=== PATIENT | female | born 1990 | race Two or more races ===

== ENCOUNTER → 2024-02-10 | Outpatient (CLI) | payer BC, SELFPAY | END | disposition home or self-care (01) | PROVIDERS: Referring Provider Physician Assistant Medical; Visit Provider Physician Assistant Medical | DX: Z34.82 Encounter for supervision of other normal pregnancy, second trimester (principal) | CPT/HCPCS: 87077; 87086; 87186 ==

== ENCOUNTER → 2024-03-07 | Outpatient (CLI) | payer BC, SELFPAY | END | disposition home or self-care (01) | LOC: SLDO 11:32 | PROVIDERS: Referring Provider Specialist; Visit Provider Specialist | DX: Z34.82 Encounter for supervision of other normal pregnancy, second trimester (principal) | CPT/HCPCS: 87086 ==

== ENCOUNTER → 2024-03-22 | Outpatient (CLI) | payer BC, SELFPAY ==
[2024-03-22 13:53] LABS: Basophils % (Auto) 1 % (0-2.5); Eosinophils # (Auto) 0.1 Thou/mm3 (0.0-0.5); Eosinophils % (Auto) 1 % (0-10); Hemoglobin 12.4 g/dL (12.0-16.0); Immature Granulocytes % (Auto) 2 % (0-0); Immature Granulocytes Auto 0.17 Thou/mm3 (0.00-0.00); Lymphocytes # (Auto) 1.1 Thou/mm3 (1.0-4.8); Lymphocytes % (Auto) 15 % (10-50); Mean Corpuscular HGB Conc 32.6 g/dl (31.0-37.0); Mean Corpuscular Hemoglobin 30.5 pg (25.0-35.0); Mean Corpuscular Volume 93 fL (80-100); Monocytes # (Auto) 0.7 Thou/mm3 (0.0-0.8); Monocytes % (Auto) 9 % (0-12); Neutrophils # (Auto) 5.7 Thou/mm3 (1.8-7.7); Neutrophils % (Auto) 73 % (37-80); Nucleated Red Blood Cell % 0 /100 WBC (0); Platelet Count 230 Thou/mm3 (140-440); RDW Standard Deviation 46.1 fL (36.4-46.3); Red Blood Count 4.07 Miln/mm3 (4.00-5.20); White Blood Count 7.8 Thou/mm3 (3.6-11.0)
[2024-03-22 14:35] LABS: Syphilis Nonreactive (Nonreactive)
== END | disposition home or self-care (01) ==
LOC: SLDO 12:32
PROVIDERS: Referring Provider Specialist; Visit Provider Specialist
DX: Z34.83 Encounter for supervision of other normal pregnancy, third trimester (principal); N39.0 Urinary tract infection, site not specified
CPT/HCPCS: 36415; 85025; 86780; 87086

== ENCOUNTER → 2024-04-27 | Outpatient (CLI) | payer OTHER, SELFPAY | END | disposition home or self-care (01) | PROVIDERS: Referring Provider Physician Assistant Medical; Visit Provider Physician Assistant Medical | DX: Z34.83 Encounter for supervision of other normal pregnancy, third trimester (principal) | CPT/HCPCS: 81514 ==

== ENCOUNTER 2024-05-12 14:27 | Observation (INO) | payer OTHER, SELFPAY ==
[2024-05-12] VITALS (21 sets, daily range): BP systolic 122–129; BP diastolic 75–77; PULSE 86–116; RESP 18–99; TEMP 37; O2SAT 97–99; BMI 26.1
[2024-05-12 15:29] LABS: ROM Kit Lot # 57809118; ROM Swab Mixed By: YOUNB; Rupture of Fetal Membranes Negative (Negative); Swb Mxed in Solvent 1 min? Yes
--- NOTE | 2024-05-12 16:24 | PC.NURSE ---
Patient discharged home with self at 1618. Vitals WNL. NST reactive. Patient cervix unchanged from initial exam. Amnisure negative and bacteria vaginal panel pending. Patient notified that someone will update her with results of vaginitis panel. Patient given discharge education and precautions including reasons to return. Patient instructed to follow up with on Wednesday at next scheduled appt. Patient verbalizes understanding, all questions answered and encouraged.
[2024-05-13 10:18] LABS: BVAG Candida Negative (Negative); Bacterial Vaginosis Markers Negative (Negative); Candida glabrata Negative (Negative); Candida krusei PCR Negative (Negative); Trichomonas Negative (Negative)
== END 2024-05-12 16:18 | disposition home or self-care (01) ==
PROVIDERS: Admitting Provider Specialist; Visit Provider Specialist
DX: O47.1 False labor at or after 37 completed weeks of gestation (principal); Z3A.38 38 weeks gestation of pregnancy
CPT/HCPCS: 59025; 59899; 81514; 84112

== ENCOUNTER 2024-05-20 23:17 | Observation (INO) | payer OTHER, SELFPAY ==
[2024-05-20 23:23] VITALS: BP 127/77; PULSE 73; RESP 16; RESP 98; TEMP 36.6
[2024-05-20 23:24] VITALS: BP 127/77; PULSE 73; TEMP 36.6
[2024-05-20 23:45] VITALS: BP 112/67; PULSE 73; TEMP 36.6; BMI 26.2
[2024-05-20 23:55] LABS: ROM Kit Lot # 57809118; ROM Swab Mixed By: ANGUM; Swb Mxed in Solvent 1 min? Yes
[2024-05-20 23:56] LABS: Rupture of Fetal Membranes Negative (Negative)
== END 2024-05-21 00:15 | disposition home or self-care (01) ==
PROVIDERS: Admitting Provider Specialist; Visit Provider Specialist
DX: Z34.83 Encounter for supervision of other normal pregnancy, third trimester (principal); Z3A.39 39 weeks gestation of pregnancy
CPT/HCPCS: 59025; 59899; 84112

== ENCOUNTER 2024-05-31 05:54 | Inpatient (IN) | payer OTHER, SELFPAY ==
--- NOTE | 2024-05-27 11:47 | ESHP_ITS ---
RE: MICHAEL BRAUN : 1990 DATE OF ADMISSION: 05/31/2024 HISTORY OF PRESENT ILLNESS: This is a 33-year-old G2, P1-0-0-1 with a due date of 05/25 with intrauterine at 40w6 days who presents complaining of contractions and is noted to be 4 cm.The patient denies any leaking or bleeding. She reports normal movement.contractions. Her care was complicated by urinary tract infection in the second trimester due to group B strep. ALLERGIES: NO KNOWN DRUG ALLERGIES. MEDICATIONS: multivitamin one p.o. daily. PAST MEDICAL HISTORY: Iron deficiency anemia, group B strep urinary tract infection, anxiety disorder. SOCIAL HISTORY: She denies any alcohol, drug use, or smoking. She is . FAMILY HISTORY: Denies. OBSTETRIC HISTORY: In 2020, 40-week normal vaginal delivery, 7 pounds 8-ounce female. No complications. PAST SURGICAL HISTORY: Denies. REVIEW OF SYSTEMS: She denies any chest pain, palpitations, cough, fever, shortness of breath, or lower extremity pain. She denies any headache, change in vision, or right upper quadrant pain. PHYSICAL EXAMINATION: VITAL SIGNS: Blood pressure 131/78, heart rate 88, respirations 18, temperature 98.2, weight 157 pounds. HEENT: Oropharynx and sclerae are clear. LUNGS: Clear to auscultation bilaterally. HEART: Regular rate and rhythm. ABDOMEN: Gravid term size, consistent with estimated weight 8 pounds. PELVIC: 4/80/-1/vtx/I per RN exam. EXTREMITIES: Nontender. SKIN: No gross rashes or lesions. NEUROLOGIC: No focal deficits. ASSESSMENT AND PLAN: Intrauterine at 40 weeks and 6 days, labor. + GBS UTI. Anticipate spontaneous vaginal delivery. Informed consent was obtained. The patient was made aware of the risks, complications, alternatives, and benefits of the proposed procedure and she agrees. She is aware of the risk of operative vaginal delivery and delivery and agrees with these modes of delivery if indicated. Ampicillin GBS prophylaxis. DT: 10:29:57 TT: 11:38:00 Ref: [id number] - TID: [id number] [facility]
[2024-05-31] VITALS (225 sets, daily range): BP systolic 106–156; BP diastolic 53–87; PULSE 61–104; RESP 16–99; TEMP 36.6–36.8; O2SAT 80–100; BMI 26.8
[2024-05-31] MEDS: Ampicillin Inj 2,000 MG in SODIUM CHLORIDE 0.9% (POP) 100 ML 200 MG IV (07:45)
[2024-05-31] MEDS: RINGERS LACTATED 1000 ML 1,000 ML 100 ML IV ×2 (07:47→11:34)
[2024-05-31 08:52] LABS: Basophils % (Auto) 0 % (0-2.5); Eosinophils # (Auto) 0.1 Thou/mm3 (0.0-0.5); Eosinophils % (Auto) 1 % (0-10); Hematocrit 37.2 % (36.0-46.0); Hemoglobin 12.6 g/dL (12.0-16.0); Immature Granulocytes % (Auto) 1 % (0-0); Immature Granulocytes Auto 0.08 Thou/mm3 (0.00-0.00); Lymphocytes # (Auto) 1.2 Thou/mm3 (1.0-4.8); Lymphocytes % (Auto) 14 % (10-50); Mean Corpuscular HGB Conc 33.9 g/dl (31.0-37.0); Mean Corpuscular Hemoglobin 29.7 pg (25.0-35.0); Mean Corpuscular Volume 88 fL (80-100); Monocytes % (Auto) 12 % (0-12); Neutrophils % (Auto) 72 % (37-80); Nucleated Red Blood Cell % 0 /100 WBC (0); Platelet Count 201 Thou/mm3 (140-440); RDW Standard Deviation 43.7 fL (36.4-46.3); Red Blood Count 4.24 Miln/mm3 (4.00-5.20); White Blood Count 8.3 Thou/mm3 (3.6-11.0)
[2024-05-31 09:27] LABS: Syphilis Nonreactive (Nonreactive)
[2024-05-31] MEDS: Ampicillin Inj 1,000 MG in SODIUM CHLORIDE 0.9% (Popper) 50 ML 50 MG IV ×3 (11:56→19:54)
[2024-05-31 12:23] LABS: Amphetamine/Metham Scrn,Ur OB Negative (Negative); Benzoylecgonine Screen, Ur OB Negative (Negative); Opiate Screen,Urine OB Negative (Negative); THC Screen,Urine OB Negative (Negative)
[2024-05-31] MEDS: MINERAL OIL 30 ML UDC TOP (20:27)
[2024-05-31] MEDS: BENZO/LANO/ALOE (Dermoplast) 60 GM CAN 1 SPRAY TOP (20:30)
[2024-05-31] MEDS: OXYTOCIN in NS 20 units 20 UNIT/1,000 ML BAG 125 UNIT IV (20:31)
[2024-05-31] MEDS: TRANEXAMIC ACID 1,000 MG IVPB 1,000 MG/100 ML BAG 200 MG IV (21:14)
[2024-05-31] MEDS: IBUPROFEN TAB 400 MG TABLET 800 MG PO (21:51)
[2024-06-01 03:50] VITALS: BP 113/72; PULSE 82; RESP 16; TEMP 36.7; O2SAT 95
[2024-06-01 05:20] LABS: Basophils % (Auto) 0 % (0-2.5); Eosinophils # (Auto) 0.1 Thou/mm3 (0.0-0.5); Eosinophils % (Auto) 1 % (0-10); Hematocrit 29.6 % (36.0-46.0); Immature Granulocytes % (Auto) 1 % (0-0); Immature Granulocytes Auto 0.07 Thou/mm3 (0.00-0.00); Lymphocytes # (Auto) 1.7 Thou/mm3 (1.0-4.8); Lymphocytes % (Auto) 15 % (10-50); Mean Corpuscular HGB Conc 33.8 g/dl (31.0-37.0); Mean Corpuscular Volume 89 fL (80-100); Monocytes # (Auto) 1.2 Thou/mm3 (0.0-0.8); Monocytes % (Auto) 11 % (0-12); Neutrophils # (Auto) 8.2 Thou/mm3 (1.8-7.7); Neutrophils % (Auto) 73 % (37-80); Nucleated Red Blood Cell % 0 /100 WBC (0); Platelet Count 164 Thou/mm3 (140-440); RDW Standard Deviation 45.8 fL (36.4-46.3); Red Blood Count 3.33 Miln/mm3 (4.00-5.20); White Blood Count 11.3 Thou/mm3 (3.6-11.0)
[2024-06-01 08:48] VITALS: BP 112/71; PULSE 92; RESP 16; TEMP 37.1; O2SAT 96
[2024-06-01 11:50] VITALS: BP 121/64; PULSE 84; RESP 18; TEMP 36.5
[2024-06-01] MEDS: BENZO/LANO/ALOE (Dermoplast) 60 GM CAN 1 SPRAY TOP (12:19)
[2024-06-01] MEDS: Hydrocortisone Cr 2.5% 30 GM TUBE TOP (13:36)
--- NOTE | 2024-06-01 14:26 | PC.SS ---
SS conducted bedside contact with the patient to address nursing referral indicating patient was late to care care. SS discussed self and role. SS discussed with patient the basis of the referral. Patient confirmed she was late to care due to her OB physician no longer practicing in that area. Patient had to find another OB physician and was able to schedule with Dr. Burch. Patient received services at 21 weeks. This is patient?s 2nd child. Patient resides with her 3 year old child and . Patient had baby boy, born [birth year], natural . Patient plans on breast feeding. Patient states she was consistent with remaining care. Patient confirmed no history of CPS, drug/alcohol, DV or mental health history. Patient denies any history of alcohol. Patient denies any history of CWS or any domestic violence.? Father of the baby is Gene Nunez. Patient has access to a car seat, baby clothing and supplies. [facility] will provide transportation upon discharge. Patient is not aligned with WIC. Patient does not possess FS or TANF. No further intervention needed at this time.? Financial Compliance Officer will be available to address any further concerns. ?SS updated bedside nurse.
[2024-06-01 16:00] VITALS: BP 110/72; PULSE 84; RESP 17; TEMP 36.8
[2024-06-01] MEDS: IBUPROFEN TAB 400 MG TABLET 800 MG PO (16:11)
--- NOTE | 2024-06-01 18:16 | ESPR_ITS ---
RE: MICHAEL BRAUN : 1990 DATE OF SERVICE: 06/01/2024 SUBJECTIVE: day #1, patient reports hemorrhoids and she seeks relief with hemorrhoid cream. She denies any excessive vaginal bleeding, dizziness, lightheadedness, chest pain, palpitations, shortness of breath or lower extremity pain. She is voiding, ambulating and tolerating a regular diet. OBJECTIVE: Vital Signs: Blood pressure 110/72, heart rate 84, respirations 17, and temperature is 98.2. Lungs: Clear to auscultation bilaterally. Heart: Regular rate and rhythm. Abdomen: Fundus is firm and nontender. Extremities: Nontender. LABORATORY DATA: Hemoglobin pre-delivery is 12.6, post-delivery is 10.0. ASSESSMENT: day #1, status post spontaneous vaginal delivery, external non-thrombosed hemorrhoids. PLAN: Hydrocortisone cream as needed. Baby will stay another day. Therefore, we will keep patient and support. Possible discharge home tomorrow. DT: 17:03:44 TT: 18:14:00 Ref: [id number] - TID: [id number]
--- NOTE | 2024-06-01 20:35 | ESDS_ITS ---
DS: Providers Provider Date of admission: 05/31/24 07:21 Primary care physician: Physician No Primary/Family Admitting Provider: Geronimo Burch MD Attending Provider on Admission: Geronimo Burch MD Consults: 05/31/24 21:26 Referral Routine Comment: Attending Provider on DC: Geronimo Burch MD Discharging Provider: Geronimo Burch MD DS: Diagnosis Problem List Completed Was Problem List Reviewed/Reconciled?: Yes Summary/Hosp Course Time Spent with Patient Time attestation: Total time spent providing and/or coordinating discharge services: Exam Vital Signs Temp Pulse Resp BP Pulse Ox O2 Del Method 98.2 F 84 17 110/72 96 Room Air 06/01/24 16:00 06/01/24 16:00 06/01/24 16:00 06/01/24 16:00 06/01/24 08:48 06/01/24 16:00 Discharge Plan Plan Patient Disposition: HOME (Self Care) Patient condition on transfer: Stable Prescriptions/Referrals Prescriptions/Med Rec: New ibuprofen 600 mg tablet 600 mg PO Q6H PRN (Reason: pain) Qty: 30 0RF hydrocortisone 2.5 % cream with perineal applicator 1 applic TX TID PRN (Reason: hemorrhoids) Qty: 30 0RF Continued Vitamin 27 mg iron- 800 mcg tablet 1 tab PO QDAY Referrals: No Primary/Family,Physician [Primary Care Provider] - Patient/Caregiver Discharge Instructions Discharge Activity: activity as tolerated Other Discharge Activity Instructions:: Follow up office 6 weeks. Education Materials: After a Vaginal , Breast Care After Print Language: Setswana Stand Alone Forms: [employer]adi Award Info., Patient Portal Info Letter Discharge Order Discharge Orders: Discharge (Routine); Ordered 06/02/24 Ordered By: Geronimo Burch Planned Discharge Date 06/02/24
[2024-06-01 21:13] VITALS: BP 126/79; PULSE 87; RESP 19; TEMP 36.8; O2SAT 97
[2024-06-02 04:10] VITALS: BP 120/76; PULSE 80; RESP 16; TEMP 36.8; O2SAT 97
[2024-06-02 08:00] VITALS: BP 126/78; PULSE 92; RESP 15; TEMP 36.7; O2SAT 98
--- NOTE | 2024-06-02 09:22 | ESPR_ITS ---
RE: MICHAEL BRAUN : 1990 DATE OF SERVICE: 06/02/2024 S: day #2, the patient denies any problem or complaints. O: Vital Signs: Stable. She is afebrile. Abdomen: Fundus is firm. Lochia is scant. Extremities: Nontender. A: day #2, status post spontaneous vaginal delivery. P: Discharge home. Discharge instructions given. Follow up in the office in 6 weeks. DT: 07:39:12 TT: 09:20:00 Ref: [id number] - TID: [id number]
== END 2024-06-02 12:40 | disposition home or self-care (01) | DRG 806 ==
LOC: S4SX 20:45 → S4NX 22:52
PROVIDERS: Admitting Provider Specialist; Visit Provider Specialist
DX: O48.0 Post-term pregnancy (principal); O87.2 Hemorrhoids in the puerperium; Z37.0 Single live birth; O99.824 Streptococcus B carrier state complicating childbirth; Z3A.40 40 weeks gestation of pregnancy; Z87.440 Personal history of urinary (tract) infections
CPT/HCPCS: 36415; 59025; 59409; 80307; 85025; 86780; 86850; 86900; 86901; 94762; J0290; J2590; J2795; J3010; J3490; J7050; J7120; A9270